=== PATIENT | female | born 1930 | race Caucasian/White ===

== ENCOUNTER 2016-11-12 11:08 | Emergency (ER) | payer MEDICARE ==
--- NOTE | ~2016-11-12 | CT71 ---
[facility] A Service of [facility] RADIOLOGY TEXT RESULTS PATIENT: ALVINO HINES LOCATION: [facility] : 34 UNIT #: [id number] AGE: [address]: Denzel Quintanilla DO SEX: F ORDER DR: [id number] [facility] [address] [place], [place] [address] [id number] E MR#: [id number] Acc #: [id number] NAME: ALVINO HINES : 1930 SEX: F STUDY DATE/TIME: 11/12/2016 11:00 UNIT: [facility] ROOM: STUDY DESCRIPTION: CT Head Wo Contrast Attending Physician: Denzel Quintanilla D.O. Referring Physician: Ky Anderson Ordering Physician: Denzel Quintanilla D.O. Primary Care Physician: Ky Anderson MEDICAL IMAGING REPORT This report is preliminary unless electronic signature is present EXAM CT head 11/12/2016 HISTORY Multiple falls in the last 4 days. Legs give out. Back pain. Head pain all over for [address] examination was performed with one or more of the following radiation dose reduction techniques: automatic exposure control, adjustment of mA and/or kV according to patient size, and iterative reconstruction. FINDINGS CT head performed skull base through vertex without intravenous contrast. Study degraded by streak artifact from ear jewelry not removed prior to examination. No comparisons. The brainstem is unremarkable. Cerebellum and cerebral hemispheres show normal olsen matter - white matter differentiation. No hemorrhage. No indication of acute cortical ischemia. There are mild periventricular and deep white matter tract hypodensities likely reflecting sequela of chronic microvascular ischemia based on patient age and statistics. The midline structures are nondisplaced. The basal ganglia show no acute abnormality. The ventricles, cisterns and sulci show mild generalized atrophy. There are cavernous carotid and distal vertebral atherosclerotic arterial calcifications. The intraorbital soft tissues are unremarkable. No intra- or extraaxial mass effect or abnormal intracranial fluid collection. The intraorbital soft tissues appear unremarkable. No fracture. Opacification of some right inferior mastoid air cells. Mucosal thickening in left sphenoid sinus. There appears to be some mild soft tissue swelling in the left supraorbital forehead. Correlate with exam. No soft tissue defect, subcutaneous air or radiodense foreign body. [facility]. [facility] A Service of [facility] & [facility] RADIOLOGY TEXT RESULTS PATIENT: ALVINO HINES LOCATION: [facility] : 34 UNIT #: [id number] AGE: [address]: Denzel Quintanilla DO SEX: F ORDER DR: IMPRESSION 1. No acute abnormality is seen in the brain. If the patient has ongoing neurologic symptoms, consider follow up imaging. 2. Chronic intracranial findings include: Vascular calcifications, mild generalized atrophy, periventricular and deep white matter tract probable sequelae of chronic microvascular ischemia. 3. No fracture. 4. There is some soft tissue swelling in the left supraorbital forehead. Correlate with exam and location of trauma. There is no soft tissue defect, subcutaneous air or radiodense foreign body. 5. Mucosal thickening in the left sphenoid sinus. Opacification of a few inferior right mastoid air cells. Correlate with any clinical signs or symptoms of mastoid inflammation. Dictated by... Alberto Maradiaga M.D. THIS IS AN ELECTRONICALLY VERIFIED REPORT Alberto Maradiaga M.D. at 11/13/2016 6:04 PM TAYLOR/tania TD: 11/12/2016 13:42 JOB #: [id number] MEDICAL IMAGING REPORT Page 1 of 1 COPY
--- NOTE | ~2016-11-12 | CR211 ---
[facility] A Service of [facility] RADIOLOGY TEXT RESULTS PATIENT: ALVINO HINES LOCATION: [facility] : 32 UNIT #: [id number] AGE: [address]: Denzel Quintanilla DO SEX: F ORDER DR: [id number] [facility] [address] [place], [place] [address] [id number] E MR#: [id number] Acc #: [id number] NAME: ALVINO HINES : 1930 SEX: F STUDY DATE/TIME: 11/12/2016 10:59 UNIT: [facility] ROOM: STUDY DESCRIPTION: CR Ribs Uni 2 View W PA Ch Rt Attending Physician: Denzel Quintanilla D.O. Referring Physician: Ky Anderson Ordering Physician: Denzel Quintanilla D.O. Primary Care Physician: Ky Anderson MEDICAL IMAGING REPORT This report is preliminary unless electronic signature is present EXAM Chest and right ribs 11/12 INDICATIONS Right posterior rib pain after a fall last night TECHNIQUE PA chest x-ray was obtained in addition to a right rib series. COMPARISON Chest CT from 12/05/2011 FINDINGS The lungs are clear. No pneumothorax is seen. Thoracic aorta appears tortuous and ectatic. Heart size within normal limits. No rib fractures are seen. IMPRESSION No active disease and no rib fracture. No pneumothorax. 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 Dictated by... Wing Curry Jr., M.D. THIS IS AN ELECTRONICALLY VERIFIED REPORT Wing Curry Jr., M.D. at 11/12/2016 4:48 PM RLK/purvi TD: 11/12/2016 13:22 JOB #: [id number] MEDICAL IMAGING REPORT Page 1 of 1 COPY
--- NOTE | ~2016-11-12 | EKG ---
PATIENT: ALVINO HINES UNIT #: [id number] Ventricular Rate: 60 BPM Atrial Rate: 60 BPM P-R Interval: 232 ms QRS Duration: 152 ms Q-T Interval: 462 ms QTC Calculation(Bezet): 462 ms P [place]: 40 degrees Calculated R [place]: -89 degrees Calculated T [place]: -55 degrees Diagnosis Line: Sinus rhythm with 1st degree A-V block Diagnosis Line: Left axis deviation Diagnosis Line: Right bundle branch block with repolarization Diagnosis Line: abnormality Diagnosis Line: T wave abnormality, consider inferior ischemia Diagnosis Line: Abnormal ECG Diagnosis Line: No previous ECGs available Diagnosis Line: Confirmed by SIENNA MENDOSA MD ([id number]) on 11/12/2016 Diagnosis Line: 11:05:08 PM INTERPRETING MD: DEONDRE SHABAZZ
[2016-11-12 10:55] LABS: POC - CKMB <1.0 ng/mL (0.0-7.9); POC - TROPONIN <0.05 ng/mL (<=0.05)
[2016-11-12 11:14] LABS: BASOPHIL% 0.2 % (0-2.5); EOSINOPHIL% 0.5 % (0.0-7.0); HEMATOCRIT 37.5 % (35.0-45.0); HEMOGLOBIN 12.5 gm/dL (12.0-16.0); LYMPHOCYTE# 0.8 X10e3 (1.0-3.5); LYMPHOCYTE% 9.9 % (17.0-45.0); MEAN CELL VOLUME 91.6 FL (83-96); MEAN CORPUSCULAR HEMOGLOBIN 30.6 PG (28-34); MEAN CORPUSCULAR HGB CONC 33.4 g/dL (30-36); MEAN PLATELET VOLUME 7.9 FL (6.5-11.5); MONOCYTE# 0.7 X10e3 (0-1.0); MONOCYTE% 8.8 % (3.0-12.0); NEUTROPHIL# 6.2 X10e3 (1.5-7.1); NEUTROPHIL% 80.6 % (40-75); PLATELET COUNT 213 X10e3 (140-420); RED CELL DISTRIBUTION WIDTH 13.8 % (11.0-15.5); WHITE BLOOD COUNT 7.6 X10e3 (4.0-10.5)
[2016-11-12 11:16] LABS: DIFF IND NO
[2016-11-12 11:28] LABS: PARTIAL THROMBOPLASTIN TIME 26.1 SECONDS (23.5-31.3); PROTHROMBIN TIME (PATIENT) 10.6 SECONDS (9.6-11.5)
[2016-11-12 11:38] LABS: ALBUMIN SERUM 3.5 g/dL (3.5-5.0); BILIRUBIN, DIRECT 0.2 mg/dL (0.0-0.2); BILIRUBIN,INDIRECT 0.6 mg/dL (0.0-0.9); BILIRUBIN,TOTAL 0.8 mg/dL (0.2-2.0); BUN/CREATININE RATIO 14.44; CALCIUM SERUM 8.8 mg/dL (8.4-10.2); CREATININE SERUM 0.9 mg/dL (0.6-1.4); GLOM FILT RATE Estimated 58.8 mL/min (>60); POTASSIUM 3.8 mmol/L (3.5-5.1); PROTEIN TOTAL SERUM 6.8 g/dL (6.0-8.3)
[2016-11-12 11:56] LABS: URINE SOURCE CLEAN CATCH
[2016-11-12 12:10] LABS: URBCS1 AUWI 0-2 /[HPF] (0-2); URINE APPEARANCE CLEAR; URINE BACTERIA AUWI NEG (NEGATIVE); URINE BILIRUBIN NEG (NEG); URINE BLOOD TRACE (NEG); URINE COLOR YELLOW; URINE GLUCOSE NEG (NEG); URINE KETONE NEG (NEG); URINE LEUKOCYTE ESTERASE NEG (NEG); URINE NITRATE NEG (NEG); URINE PH 7.5 (5-8); URINE PROTEIN NEG (NEG); URINE SPECIFIC GRAVITY 1.008 (1.003-1.035); URINE SQUAMOUS EPITHELIAL CELL NONE SEEN /[HPF]; URINE UROBILINOGEN 0.2 MG/DL (NEG); UWBCS1 AUWI 0-2 (0-5)
[2016-11-12 12:11] LABS: CULTURE INDICATED? NO
[2016-11-12 12:52] LABS: POC - CKMB <1.0 ng/mL (0.0-7.9); POC - TROPONIN <0.05 ng/mL (<=0.05)
== END 2016-11-12 14:48 | disposition left against medical advice (07) ==
LOC: CED 11:08
PROVIDERS: Emergency Medicine
DX: S01.00XA Unspecified open wound of scalp, initial encounter (principal); S20.211A Contusion of right front wall of thorax, initial encounter; R53.1 Weakness; W19.XXXA Unspecified fall, initial encounter; Y92.009 Unspecified place in unspecified non-institutional (private) residence as the place of occurrence of the external cause
CPT/HCPCS: 36415; 70450; 71101; 80048; 80076; 81003; 82553; 84484; 85025; 85610; 85730; 93005; 99284